=== PATIENT | male | born 1985 | race Caucasian/White ===

== ENCOUNTER 2023-12-12 22:44 | Emergency (ER) | payer MEDICAID ==
[~2023-12-12] VITALS: Ht 185.4 cm; Wt 81.5 kg
[2023-12-12] MEDS ORDERED: albuterol 2.5 MG/3 ML nebule NEB ONE (23:00)
[2023-12-12] MEDS ORDERED: methylPREDNISolone sod succ 125mg/2ml vial IM ONE (23:25)
[2023-12-12 23:32] VITALS: PULSE 82; RESP 22; O2SAT 95
[2023-12-12 23:37] LABS: BASOPHILS # (AUTO) 0.2 X10'3 (0-0.2); BASOPHILS % (AUTO) 1.5 % (0-1); EOSINOPHILS # (AUTO) 0.6 X10'3 (0-0.9); EOSINOPHILS % (AUTO) 5.8 % (0-6); HEMATOCRIT 48.2 % (42.0-52.0); LYMPHOCYTES # (AUTO) 4.1 X10'3 (1.1-4.8); LYMPHOCYTES % (AUTO) 37.7 % (21-51); MEAN CORPUSCULAR HEMOGLOBIN 28.1 PG (27.0-31.0); MEAN CORPUSCULAR HGB CONC 33.2 g/dL (33.0-36.5); MEAN CORPUSCULAR VOLUME 84.6 FL (78-98); MEAN PLATELET VOLUME 8.8 FL (7.4-10.4); MONOCYTES # (AUTO) 0.8 X10'3 (0-0.9); MONOCYTES % (AUTO) 7.5 % (2-12); NEUTROPHILS # (AUTO) 5.2 X10'3 (1.8-7.7); NEUTROPHILS % (AUTO) 47.5 % (42-75); PLATELET COUNT 356 X10'3 (140-440); RED BLOOD COUNT 5.69 X10'6 (4.70-6.10); RED CELL DISTRIBUTION WIDTH 13.7 % (11.5-14.5)
[2023-12-12 23:38] VITALS: PULSE 69; O2SAT 97
[2023-12-12 23:38] LABS: ALANINE AMINOTRANSFERASE 28 U/L (12-78); ALBUMIN 3.9 G/DL (3.4-5.0); ALBUMIN/GLOBULIN RATIO 1.1 (1.1-1.5); ALKALINE PHOSPHATASE 70 IU/L (46-116); ANION GAP 9 (8-16); ASPARTATE AMINO TRANSFERASE 24 U/L (10-37); BILIRUBIN,TOTAL 0.3 MG/DL (0.1-1.0); BLOOD UREA NITROGEN 8 MG/DL (7-18); BUN/CREATININE RATIO 8.4 (10.0-20.0); CALCIUM 8.9 MG/DL (8.5-10.1); CHLORIDE 108 MMOL/L (99-107); CREATININE 0.95 MG/DL (0.60-1.10); SODIUM 144 MMOL/L (135-145); TOTAL CARBON DIOXIDE 27.1 MMOL/L (24-32); TOTAL PROTEIN 7.5 G/DL (6.4-8.2); eCRCL 119 ML/MIN; eGFR 89 ML/MIN
[2023-12-12 23:47] LABS: PRO BRAIN NATRIURETIC PEPTIDE < 30 PG/ML (0-125)
[2023-12-12 23:50] LABS: GLUCOSE 106 MG/DL (70-104); POTASSIUM 3.8 MMOL/L (3.5-5.1)
[2023-12-12] MEDS ORDERED: PRED20TA PO (23:54)
[2023-12-12] MEDS ORDERED: ALBU18HF2 INH (23:54)
[2023-12-13 00:15] VITALS: BP 142/76; PULSE 62; RESP 16; TEMP 98.6; O2SAT 97
== END 2023-12-13 00:16 | disposition home or self-care (01) ==
LOC: ER 22:46
DX: J45.909 Unspecified asthma, uncomplicated (principal); Z79.899 Other long term (current) drug therapy
CPT/HCPCS: 36415; 71045; 80053; 83880; 84484; 85025; 93005; 94640; 96372; 99285; J2930; 94760

== ENCOUNTER 2025-05-01 06:22 | Emergency (ER) | payer MEDICAID ==
[~2025-05-01] VITALS: Ht 185.4 cm; Wt 77.3 kg
[~2025-05-01 06:22] MED LIST: ALBU18HF2 INH
[2025-05-01 06:27] VITALS: BP 97/72; PULSE 60; TEMP 98.9; O2SAT 98
--- NOTE | 2025-05-01 07:08 | Physician Documentation ---
History of Present Illness ~ Chief Complaint: Toe pain Stated Complaint: TOE PAIN Time Seen by MD: 07:04 OK to notify your PCP?: Yes Source: patient, family, RN/MD, RN notes reviewed, old records Mode of Arrival: POV Exam Limitations: no limitations HPI Patient was jumping over a fence during the night and jammed his toes felt a pop it was painful he has 2. Digit that is already somewhat deformed which is his baseline for both toes but this one is much worse and swollen painful and tender. 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 He is walking with a limp it is painful with movement. He has no other complaints at this time in his in good health. Tetanus witin 5 years: No Medication Reconciliation Allergies: Coded Allergies: No Known Allergies (Unverified , 05/01/25) Scheduled PRN Albuterol Sulfate (Ventolin Hfa), 2 PUFFS INH Q4HPRN PRN for wheezing Past Medical History Past Medical History: Asthma Past Surgical History: orthopedic surgeries Smoking Status: Never smoker Alcohol Use: None Drug Use: none Review of Systems All Other Systems at this time: Reviewed and Negative Physical Exam Vital Signs: RN Vital Signs have been reviewed: Yes, Temperature: 98.9, Source: Temporal, Heart Rate: 60, Respiratory Rate: 16, BP: 97/72, Pulse Oximetry: 98, Weight: 77.300 Oxygen Flow Rate: 0 Physical Exam General: The patient is well developed, well nourished, nontoxic appearing and is in no acute distress. Skin: [place], warm and dry with no rashes. HEENT: Head was normocephalic and atraumatic. Eyes - pupils equal, round, reactive to light and accommodation. Extraocular movements were intact. Conjunctivae were nonicteric. The mouth and oropharynx were clear with moist mucous membranes. There were no pharyngeal exudates or erythema. Neck: Supple and nontender. There was no jugular venous distention, lymphadenopathy, thyromegaly or masses. Chest: Clear to auscultation bilaterally without wheezes, rales or rhonchi. No accessory muscle use. No dullness to percussion. Heart: Rate regular and rhythmic. S1, S2. No murmurs. Palpation of the chest wall was normal. No rubs or thrills. Abdomen: Soft, nontender and nondistended. Positive bowel sounds. No guarding or rebound. No hepatosplenomegaly or palpable masses. Extremities: No cyanosis, clubbing or edema. The patient moves all extremities. Pulses were equal and symmetric. Left 2. Toe is angled slightly more deformed than baseline. Neurologic: Motor sensory grossly intact Psychologic: The patient was oriented to person, place and time. The patient demonstrated appropriate judgement and insight. Progress Results/Orders Reviewed/noted all lab results: Yes Results/Orders Orders - JOSE CARLOS GONZALEZ MD Toe(S) (05/01/25 06:33) Ortho Orders (05/01/25 07:06) Completed Orders - JOSE CARLOS GONZALEZ MD Toe(S) (05/01/25 06:33) Hydrocodone/Apap 10/325 ([place] 10/325mg (05/01/25 07:05) Naproxen Tablet (Naprosyn Tablet) (05/01/25 07:05) Medications Received in ER Medications (Trade) Dose Ordered Sig/Kristopher Route PRN Reason Start Time Stop Time Status Last Admin Dose Admin ([place] 10/325mg tab) 1 tab ONCE ONCE PO 05/01/25 07:05 05/01/25 07:06 DC 05/01/25 07:13 1 TAB (Naprosyn tablet) 500 mg ONCE ONCE PO 05/01/25 07:05 05/01/25 07:06 DC 05/01/25 07:14 500 MG Vital Signs 05/01/25 05/01/25 06:27 07:13 Temp 98.9 Pulse 60 Resp 16 16 B/P (MAP) 97/72 Pulse Ox 98 O2 Flow Rate 0 Re-Evaluation Re-Evaluation : Re-Evaluation: Improved Progress Patient was given pain meds there appears to be an avulsion fracture x-ray was read as normal. Patient had some subluxation. I attempted to reduce the toe but did not have significant ecchymosis and did not seem that dislocated. Patient states that he has decreased mobility which is new. Patient was given an ortho shoe and discharged home to follow up with Orthopedic surgery for definitive treatment and if possible surgical intervention as needed and better immobilization of the joint. Patient understood the instructions and was discharged home. I showed the x-rays to the patient. EKG/XRAY/CT/US/VASC/MRI Bone/Soft Tissue X-Ray (Ext.) : Additional Comment EXAM: XR Left Toes, 2 or More Views CLINICAL INDICATION: TOE PAIN TECHNIQUE: Frontal, lateral and oblique views of the toes of the left foot. COMPARISON: None FINDINGS: BONES/JOINTS: Possible mild subluxation of the 2nd interphalangeal joint. No acute fracture. SOFT TISSUES: Soft tissue swelling. No radiopaque foreign body. OTHER FINDINGS: . IMPRESSION: Possible mild subluxation of the 2nd interphalangeal joint. : XR Left Toes, 2 or More Views CLINICAL INDICATION: TOE PAIN TECHNIQUE: Frontal, lateral and oblique views of the toes of the left foot. COMPARISON: None FINDINGS: BONES/JOINTS: Possible mild subluxation of the 2nd interphalangeal joint. No acute fracture. SOFT TISSUES: Soft tissue swelling. No radiopaque foreign body. OTHER FINDINGS: . IMPRESSION: Possible mild subluxation of the 2nd interphalangeal joint. My read shows an avulsion chip fracture of the left the IP joint and subluxation Medical Decision Making Additional info obtained from: old records Toe Diff Dx:Considerations: Include: Abrasion, Cellulitis, Contusion, Dislocation, Fracture, Hematoma, Laceration, Neurovascular injury, Paronychia, Subungual hematoma, Other Departure Disposition: 01 HOME / SELF CARE / HOMELESS Impression: Primary Impression: Fracture of toe, closed Qualified Codes: S92.912A - Unspecified fracture of left toe(s), initial encounter for closed fracture Discharge Instructions: Toe Fracture, [id number] Additional Instructions: Non weight-bearing activity or hard soled shoe ortho shoe. Follow up with Orthopedic surgery for possible surgical intervention. Please call for an appointment Referrals: NO PRIMARY CARE PROVIDER (PCP) XIMENA VAZQUEZ Jr., MD Education Educated: Patient, Family Educated regarding: diagnosis, need for follow up, other Signature Scribe Signature: No scribed Attestation: The note accurately reflects work and decisions made by me.Jose Carlos Gonzalez MD 05/01/25 07:07 JOSE CARLOS GONZALEZ MD May 01, 2025 07:08
[2025-05-01 07:13] VITALS: RESP 16
[2025-05-01] MEDS: HYDROcodone/acetaminophen 10/325mg tab PO ONE (07:13)
[2025-05-01] MEDS: naproxen 500mg tablet PO ONE (07:14)
--- NOTE | 2025-05-01 07:15 | RADIOLOGY REPORT ---
EXAM: XR Left Toes, 2 or More Views CLINICAL INDICATION: TOE PAIN TECHNIQUE: Frontal, lateral and oblique views of the toes of the left foot. COMPARISON: None FINDINGS: BONES/JOINTS: Possible mild subluxation of the 2nd interphalangeal joint. No acute fracture. SOFT TISSUES: Soft tissue swelling. No radiopaque foreign body. OTHER FINDINGS: . IMPRESSION: Possible mild subluxation of the 2nd interphalangeal joint.
== END 2025-05-01 09:36 | disposition home or self-care (01) ==
LOC: ER 06:22
DX: S92.912A Unspecified fracture of left toe(s), initial encounter for closed fracture (principal); J45.909 Unspecified asthma, uncomplicated; X58.XXXA Exposure to other specified factors, initial encounter; Y93.01 Activity, walking, marching and hiking; Y92.89 Other specified places as the place of occurrence of the external cause; Y99.8 Other external cause status
CPT/HCPCS: 28515; 73660; 99284; L3260